=== PATIENT | female | born 1985 | race African-American/Black ===

== ENCOUNTER 2017-10-18 09:13 | Emergency (ER) | payer MEDICAID, OTHER ==
[~2017-10-18] VITALS: Ht 157.5 cm; Wt 82.0 kg
[2017-10-18 12:45] LABS: CLARITY URINE CLOUDY (CLEAR); COLOR URINE YELLOW (YELLOW); KETONES URINE NEGATIVE (NEGATIVE); LEUKOCYTE ESTERASE URINE NEGATIVE (NEGATIVE); NITRITE URINE NEGATIVE (NEGATIVE); OCCULT BLOOD URINE NEGATIVE (NEGATIVE); PROTEIN URINE NEGATIVE (NEGATIVE); SPECIFIC GRAVITY URINE 1.017 (1.005-1.030); UROBILINOGEN URINE 0.2 E.U./dL (0.2-1.0)
[2017-10-18 13:50] VITALS: BP 119/60
== END 2017-10-18 13:51 | disposition home or self-care (01) ==
LOC: ER 10:11
DX: N39.0 Urinary tract infection, site not specified (principal)
CPT/HCPCS: 81001; 81025; 87210; 99284